=== PATIENT | male | born 1995 | race Two or more races ===

== ENCOUNTER → 2017-04-16 | Outpatient (CLI) | payer BC ==
[2017-04-16 12:08] LABS: Basophils # (auto) 0 uL; Eosinophils # (auto) 0.2 uL; Eosinophils % (auto) 5.3 % (0.0-7.0); Hematocrit 50.9 % (41.0-53.0); Hemoglobin 17.2 g/dL (13.5-17.5); Lymphocytes # (auto) 1.7 uL; Lymphocytes % (auto) 39.7 % (10.0-50.0); Mean Corpuscular Hemoglobin 29.9 pg (28.0-32.0); Mean Corpuscular Hgb Conc. 33.7 g/dL (32.0-36.0); Mean Corpuscular Volume 88.8 fL (80.0-100.0); Monocytes # (auto) 0.3 uL; Monocytes % (auto) 6.9 % (0.0-12.0); Neutrophils % (auto) 47.1 % (37.0-80.0); Nucleated Red Blood Cells % 0.3 %; Platelet Count (auto) 212 10^3/uL (140-450); Red Blood Cells 5.73 10^6/uL (4.5-5.90); Red Cell Distribution Width 12.8 % (11.8-14.3); White Blood Cell 4.3 10^3/uL (4.4-10.8)
[2017-04-16 12:15] LABS: Urine Blood Negative /uL (Negative); Urine Specific Gravity 1.026 (1.001-1.035)
[2017-04-16 12:32] LABS: Albumin 4.4 g/dL (3.4-5.0); BUN/Creatinine Ratio 18.4; Bilirubin, Direct 0.3 mg/dL (0-0.2); Bilirubin, Total 1.5 mg/dL (0.2-1.0); Calcium 9.3 mg/dL (8.5-10.1); Potassium 4.1 mmol/L (3.5-5.1); Total Protein 7.8 g/dL (6.4-8.2)
== END | disposition home or self-care (01) ==
LOC: Rad HDHVI 10:33
PROVIDERS: ATTEND Internal Medicine Cardiovascular Disease
DX: M25.572 Pain in left ankle and joints of left foot (principal); E78.00 Pure hypercholesterolemia, unspecified; D64.9 Anemia, unspecified; I10 Essential (primary) hypertension; E11.9 Type 2 diabetes mellitus without complications; E03.9 Hypothyroidism, unspecified; R97.20 Elevated prostate specific antigen [PSA]; R53.81 Other malaise; K74.1 Hepatic sclerosis; N39.0 Urinary tract infection, site not specified
CPT/HCPCS: 36415; 73630; 80048; 80061; 80076; 81003; 83036; 84153; 84403; 84443; 85025